=== PATIENT | male | born 1960 | race Caucasian/White ===

== ENCOUNTER 2017-04-18 07:36 | Day surgery (SDC) | payer OTHER ==
[2017-04-17 16:00] VITALS: BMI 22.8
[2017-04-18] MEDS ORDERED: PROPOFOL 20 ML ONE ×2 (07:40)
[2017-04-18] MEDS ORDERED: LIDOCAINE HCL/PF 2% SDV 5ML VIAL ONE (07:41)
[2017-04-18 10:12] VITALS: TEMP 98.1
[2017-04-18 10:13] VITALS: BP 112/65; PULSE 71
--- NOTE | 2017-04-19 10:56 | PATH ---
Surgical Pathology Report Patient Name: SANDY SIMMONS [facility]. Rec. #: [id number] /Age/Gender: 1960 (Age: 56) / M Account: [id number] Location: [facility]-ENDOSCOPY Taken: 04/18/2017 Received: 04/18/2017 Reported: 04/19/2017 Physicians: Issa Jarrett M.D. Specimen(s) Received A: BX DUODENUM B: BX ANTRUM Clinical History Dysphagia Duodenitis, gastritis, esophageal stricture Final Diagnosis A. DUODENUM, BIOPSY: DUODENAL MUCOSA WITH NO PATHOLOGIC CHANGES. NO HISTOLOGIC EVIDENCE OF GLUTEN SENSITIVE ENTEROPATHY (CELIAC SPRUE) IDENTIFIED. B. STOMACH, ANTRUM, BIOPSY: MODERATE CHRONIC ACTIVE GASTRITIS. IMMUNOSTAIN FOR H. PYLORI IS POSITIVE (MODERATE TO MANY ORGANISMS). Electronically Signed José Lowe M.D. Gross Description A. Received in formalin, labeled "duodenum" are 2 perez, irregular portions of soft tissue measuring 0.3 and 0.5 cm. in greatest dimension. The specimens are submitted in toto in one cassette. B. Received in formalin, labeled "antrum" are 2 perez, irregular portions of soft tissue averaging 0.4 cm. in greatest dimension. The specimens are submitted in toto in one cassette. 04/18/201704/18/2017
== END 2017-04-18 10:15 | disposition home or self-care (01) ==
LOC: FASU-ENDO 07:36
PROVIDERS: ATTEND Internal Medicine Gastroenterology
PROC: 0DB68ZX Excision of Stomach, Via Natural or Artificial Opening Endoscopic, Diagnostic (ICD-10-PCS; 2017-04-18)
PROC: 0D748ZZ Dilation of Esophagogastric Junction, Via Natural or Artificial Opening Endoscopic (ICD-10-PCS; principal; 2017-04-18 09:09)
PROC: 0DB98ZX Excision of Duodenum, Via Natural or Artificial Opening Endoscopic, Diagnostic (ICD-10-PCS; 2017-04-18 09:09)
DX: K22.2 Esophageal obstruction (principal); K20.9 Esophagitis, unspecified; K29.50 Unspecified chronic gastritis without bleeding; K29.80 Duodenitis without bleeding; R13.10 Dysphagia, unspecified; R12 Heartburn
CPT/HCPCS: 88305-TC; 88342-TC

== ENCOUNTER 2021-04-03 09:32 | Day surgery (SDC) | payer OTHER ==
[2021-03-31 10:47] VITALS: BMI 24.4
[2021-04-03] MEDS ORDERED: PROPOFOL 20 ML ONE (09:50)
[2021-04-03 11:16] VITALS: PULSE 80; TEMP 97.5
[2021-04-03 11:20] VITALS: BP 109/70
== END 2021-04-03 11:40 | disposition home or self-care (01) ==
LOC: FASU-ENDO 09:32
PROVIDERS: ATTEND Internal Medicine Gastroenterology
PROC: 0DBK8ZX Excision of Ascending Colon, Via Natural or Artificial Opening Endoscopic, Diagnostic (ICD-10-PCS; principal; 2021-04-03 10:20)
DX: Z12.11 Encounter for screening for malignant neoplasm of colon (principal); K57.30 Diverticulosis of large intestine without perforation or abscess without bleeding